=== PATIENT | male | born 1980 | race Caucasian/White ===

== ENCOUNTER → 2016-11-19 | Outpatient (CLI) | payer BC ==
[~2016-11-19] MED LIST: FLUT1DIS IH; IOHEXOL 240 MG/ML 50ML VIAL. PO ONE; IOHEXOL 300 MG/ML 100ML VIAL. IV ONE; PROAIR HFA8.5 GM INH
--- NOTE | 2016-11-19 16:18 | KCIC ---
Examination: CT of the abdomen pelvis with oral and IV contrast. HISTORY History of inguinal hernia left lower quadrant pain and bulge COMPARISON None available TECHNIQUE Axial CT images of the abdomen pelvis were performed with oral and IV contrast. Coronal sagittal reformats were performed Exposure: One or more of the following dose reduction technique were utilized for this examination: 1. Automated exposure control. 2.Adjustment of MA and /or KV according to patient size. 3. Use of iterative reconstruction technique. FINDINGS The bibasilar lungs are clear. There is a 1 centimeter hypodensity identified in the right lobe of the liver and a smaller 8 millimeter hypodensity identified in the dome of the right lobe of the liver. The visualized spleen, adrenals grossly appears unremarkable. The gallbladder is mildly distended. The stomach is mildly distended. The visualized pancreas grossly appears unremarkable.The small bowel is nondilated. Feces and gas noted throughout the colon. The appendix is normal. The urinary bladder is mildly distended . No evidence of inguinal hernia identified. The bilateral kidneys enhance symmetrically. The caliber of the aorta grossly appears unremarkable. L5 bilateral spondylolysis with no evidence of listhesis. Impression: 1. No acute intra-abdominal findings. 2. Small hypodensities identified in the right lobe of the liver with the largest measuring 1 centimeter difficult to characterize on this examination probably hemangiomas or cysts. Electronically signed by: Maurizio Ibarra (November 19, 2016 16:17:26)
== END | disposition home or self-care (01) ==
LOC: KCIC CT 14:36
PROVIDERS: ATTEND Nurse Practitioner Family
DX: K40.90 Unilateral inguinal hernia, without obstruction or gangrene, not specified as recurrent (principal)
CPT/HCPCS: 74177; Q9966; Q9967